=== PATIENT | female | born 1995 | race Caucasian/White ===

== ENCOUNTER 2017-03-04 15:40 | Emergency (ER) | payer OTHER ==
[2017-03-04 15:52] VITALS: BP 136/88
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
[2017-03-04] MEDS: TORADOL IM ONE (16:27)
== END 2017-03-04 16:31 | disposition home or self-care (01) ==
LOC: ED 15:40
DX: M54.9 Dorsalgia, unspecified (principal); J45.909 Unspecified asthma, uncomplicated; V49.59XA Passenger injured in collision with other motor vehicles in traffic accident, initial encounter; Y93.9 Activity, unspecified; Y92.9 Unspecified place or not applicable; Y99.9 Unspecified external cause status
CPT/HCPCS: 96372; 99283; J1885